=== PATIENT | female | born 1930 | race Caucasian/White ===

== ENCOUNTER 2017-04-17 16:11 | Inpatient (IN) | payer MEDICARE ==
[2017-04-17] VITALS (187 sets, daily range): BP systolic 100; BP diastolic 69; PULSE 113; TEMP 96.9; O2SAT 76–100
[~2017-04-17] VITALS: Ht 170.2 cm; Wt 77.9 kg
[~2017-04-17 16:11] MED LIST: ANTACID500 MG PO; BETAPACE 80MG80 MG PO; COUMADIN 5MG5 MG/TAB; DEMADEX100 MG PO; DOXYCYCLINE 10100 MG PO; FLEXERIL 1010 MG/TAB PO; FOLIC ACID800 MCG PO; KLOR-CON 1010 MEQ PO; LASIX 80MG TABL80 MG; NORCO 325 MG-51 TAB PO; PREDNISONE20 MG PO; PRILOTC PO; ULTRAM 50MG TAB50 MG PO; VESICARE 5MG5 MG PO; ZOFRAN 4MG T4 MG/TAB PO; ZOFRAN ODT4 MG PO
[2017-04-17] MEDS ORDERED: ZAROXOLYN 2.52.5 MG PO (16:39)
[2017-04-17] MEDS ORDERED: PROZAC 10MG10 MG PO (16:39)
[2017-04-17] MEDS ORDERED: ZEBETA 5MG5 MG PO (16:39)
[2017-04-17] MEDS ORDERED: MIRALAX PA17 GM/Dose PO (16:40)
[2017-04-17] MEDS ORDERED: PRILOSEC 20MG20 MG PO ×2 (16:40→16:53)
[2017-04-17] MEDS ORDERED: RELAFEN 50500 MG/TAB PO (16:40)
[2017-04-17] MEDS ORDERED: PREDNISONE10 MG PO (16:41)
[2017-04-17] MEDS ORDERED: DEMADEX100 MG PO (16:41)
[2017-04-17] MEDS ORDERED: DESYREL 100MG100 MG PO (16:41)
[2017-04-17] MEDS ORDERED: TRIAMCINOLONE A15 GM TP (16:42)
[2017-04-17] MEDS ORDERED: COLACE 100100 MG/CAP PO (16:43)
[2017-04-17] MEDS ORDERED: COUMADIN 5MG5 MG/TAB PO (16:43)
[2017-04-17] MEDS ORDERED: NYSTATIN POWDER30 GM TOP (16:44)
[2017-04-17 16:47] LABS: ARTERIAL BLD GAS O2 SATURATION 89.4 % (92-100); ARTERIAL BLD GAS TCO2 CT 30.4; ARTERIAL BLOOD GAS BASE EXCESS 6.3 (-2-2); ARTERIAL BLOOD GAS HCO3 29.3 meq/L (22-26); ARTERIAL BLOOD GAS pH 7.52 (7.35-7.45); OXYHEMOGLOBIN 88.1 %
[2017-04-17 16:48] LABS: ATS? YES
[2017-04-17 16:51] LABS: HEMOGLOBIN 13.6 g/dl (12.5-16.0); MEAN CELL VOLUME 93 fl (80.0-100.0); MEAN CORPUSCULAR HEMOGLOBIN 31 pg (27.0-31.0); MEAN CORPUSCULAR HGB CONC 33 g/dl (33.0-37.0); MEAN PLATELET VOLUME 9.6 fl (7.4-10.4); PLATELET COUNT 207 K/mm3 (130-400); RED BLOOD COUNT 4.42 M/mm3 (4.10-5.30); REDCELL DISTRIBUTION WIDTH-CV 14.6 % (11.5-14.5)
[2017-04-17 16:56] LABS: INR 2.9 (0.8-3.0)
[2017-04-17 16:57] LABS: ADD PATHOLOGY DIFF REVIEW NO; WHITE BLOOD COUNT 22.8 K/mm3 (4.8-10.8)
[2017-04-17 17:16] LABS: ADJUSTED CALCIUM 9.1 mg/dL (8.4-10.2); ALBUMIN 4.2 gm/dL (3.5-5.0); BILIRUBIN,TOTAL 2.1 mg/dL (0.0-1.0); CALCIUM 9.3 mg/dL (8.4-10.2); CREATININE, serum 0.99 mg/dL (0.52-1.25); TOTAL PROTEIN 7.1 gm/dL (6.4-8.2)
[2017-04-17 17:17] LABS: POTASSIUM 2.6 mmol/L (3.4-5.0)
[2017-04-17 17:33] LABS: TROPONIN-I 0.079 ng/mL (0.000-0.034)
[2017-04-17 17:40] LABS: BAND 27 % (0-10); METAMYELOCYTE 1 % (0-0); MYELOCYTE 1 % (0-0); NEUTROPHILS 68 % (42.0-75.2); OVALOCYTES 1+; PLATELET ESTIMATE NORMAL (NORMAL); TOTAL CELLS COUNTED 100
[2017-04-17 18:36] LABS: PH 6 (5-8); SQUAMOUS EPITHELIAL None Seen /hpf; URINE APPEARANCE Clear; URINE BACTERIA None Seen /hpf; URINE BILIRUBIN Negative (NEGATIVE); URINE BLOOD 1+ (NEGATIVE); URINE COLOR Yellow; URINE GLUCOSE Negative (NEGATIVE); URINE KETONE Negative (NEGATIVE); URINE UROBILINOGEN Negative (NEGATIVE); URINE WBC 0-2 /hpf
[2017-04-17 22:07] LABS: POTASSIUM 3.4 mmol/L (3.4-5.0)
[2017-04-18] VITALS (347 sets, daily range): BP systolic 94–104; BP diastolic 68–73; PULSE 107–118; TEMP 97.2–97.7; O2SAT 52–100
[2017-04-18 03:58] LABS: POTASSIUM 3.9 mmol/L (3.4-5.0)
[2017-04-18 04:57] LABS: CALCIUM 8.4 mg/dL (8.4-10.2); CREATININE, serum 1.05 mg/dL (0.52-1.25); MAGNESIUM 1.9 mg/dL (1.6-2.3)
== END 2017-04-18 09:16 | disposition expired | DRG 871 ==
LOC: COL.ER 16:11 → ICU 19:04
PROVIDERS: Emergency Medicine; Family Medicine
DX: A41.9 Sepsis, unspecified organism (principal); R65.21 Severe sepsis with septic shock; I50.23 Acute on chronic systolic (congestive) heart failure; E87.1 Hypo-osmolality and hyponatremia; I83.218 Varicose veins of right lower extremity with both ulcer of other part of lower extremity and inflammation; I83.228 Varicose veins of left lower extremity with both ulcer of other part of lower extremity and inflammation; L97.819 Non-pressure chronic ulcer of other part of right lower leg with unspecified severity; L97.829 Non-pressure chronic ulcer of other part of left lower leg with unspecified severity; L03.116 Cellulitis of left lower limb; L03.115 Cellulitis of right lower limb; I50.1 Left ventricular failure, unspecified; N17.9 Acute kidney failure, unspecified; I11.0 Hypertensive heart disease with heart failure; Z95.0 Presence of cardiac pacemaker; E87.6 Hypokalemia; E86.0 Dehydration; I48.91 Unspecified atrial fibrillation
CPT/HCPCS: 99222-AI; 99238; J1940; J1956; J2405; J3370; J3480; J7040; J7050; P9047; Q9967